=== PATIENT | female | born 1950 | race Caucasian/White ===

== ENCOUNTER → 2017-01-05 | Outpatient (CLI) | payer BC, MEDICARE ==
--- NOTE | 2017-01-06 08:04 | RAD ---
EXAM DESCRIPTION: XR FOOT 3 OR MORE VIEWS CLINICAL HISTORY: PAIN. FINDINGS/IMPRESSION: Fracture base of the 5th metatarsal epiphysis, transversely oriented. No significant offset of the subchondral cortex. Maximum separation about 2-3 mm. No other fracture of the foot. Mild hallux valgus and osteoarthritis metatarsophalangeal joint great toe Electronically signed by: Kendrick Ramirez MD 01/06/2017 08:02
== END | disposition home or self-care (01) ==
LOC: RAD 08:49
PROVIDERS: ATTEND Orthopaedic Surgery
DX: M79.671 Pain in right foot (principal)

== ENCOUNTER → 2017-01-19 | Outpatient (CLI) | payer BC, MEDICARE ==
--- NOTE | 2017-01-19 09:41 | RAD ---
EXAM DESCRIPTION: Foot,Right 3 Views CLINICAL HISTORY: 66 yearsFemale, CLOSED FX OF TARSAL AND METATARSAL BONES COMPARISON: January 05, 2017 IMPRESSION: The transversely oriented fracture through the tuberosity of the fifth metatarsal has demonstrated no interval callus formation. No increased healing when compared to prior. All additional findings are unchanged. Electronically signed by: Conor Fagan MD 01/19/2017 9:39 AM [employer]
== END | disposition home or self-care (01) ==
LOC: RAD 08:57
PROVIDERS: ATTEND Orthopaedic Surgery
DX: S92.201D Fracture of unspecified tarsal bone(s) of right foot, subsequent encounter for fracture with routine healing (principal)

== ENCOUNTER → 2017-02-09 | Outpatient (CLI) | payer BC, MEDICARE ==
--- NOTE | 2017-02-09 15:21 | RAD ---
EXAM DESCRIPTION: Foot,Right 3 Views CLINICAL HISTORY: 66 years Female, CLOSED FX OF TARSAL AND METATARSAL BONES COMPARISON: January 19, 2017 FINDINGS: Again seen is a nondisplaced, nonunited transversely oriented fracture involving the base of the fifth metatarsal, unchanged from the patient's previous exam. No new fracture or malalignment is identified. The joint spaces are well-maintained. There is no radiopaque foreign body or soft tissue gas. IMPRESSION: Nondisplaced, nonunited right fifth metatarsal base fracture, unchanged from January 19, 2017. No significant interval callus formation and no new abnormality. Electronically signed by: Elgin Cain MD 02/09/2017 3:20 PM CDT
== END | disposition home or self-care (01) ==
LOC: RAD 08:08
PROVIDERS: ATTEND Orthopaedic Surgery
DX: S92.201D Fracture of unspecified tarsal bone(s) of right foot, subsequent encounter for fracture with routine healing (principal)

== ENCOUNTER → 2017-03-02 | Outpatient (CLI) | payer BC, MEDICARE ==
--- NOTE | 2017-03-03 07:48 | RAD ---
EXAM DESCRIPTION: Foot,Right 3 Views CLINICAL HISTORY: 66 years,Female,CLOSED FX OF TARSAL AND METATARSAL COMPARISON: February 09, 2017 FINDINGS: The right foot demonstrates oblique fracture to the base of the fifth metatarsal which demonstrates a mild increased healing and blurring of the fracture line since prior study. It is displaced about 2 mm but no incongruency of the articular surface Soft tissues are unremarkable. IMPRESSION: Healing transverse fracture to the base of the right fifth metatarsal tarsal [] Electronically signed by: Hubert Duarte MD 03/03/2017 7:47 AM CDT
== END ==
LOC: RAD 07:57
PROVIDERS: ATTEND Orthopaedic Surgery
DX: S92.201D Fracture of unspecified tarsal bone(s) of right foot, subsequent encounter for fracture with routine healing (principal)

== ENCOUNTER → 2017-04-26 | Outpatient (CLI) | payer BC | END | disposition home or self-care (01) | LOC: GMAB 10:54 | PROVIDERS: ATTEND Family Medicine | DX: Z00.01 Encounter for general adult medical examination with abnormal findings (principal) ==

== ENCOUNTER → 2017-05-12 | Outpatient (CLI) | payer BC | END | disposition home or self-care (01) | LOC: GMAB 12:30 | PROVIDERS: ATTEND Family Medicine | DX: N30.00 Acute cystitis without hematuria (principal) ==

== ENCOUNTER → 2017-05-12 | Outpatient (CLI) | payer BC | END | disposition home or self-care (01) | LOC: GMAB 13:39 | PROVIDERS: ATTEND Family Medicine | DX: N30.00 Acute cystitis without hematuria (principal) ==

== ENCOUNTER 2017-05-17 16:53 | Inpatient (IN) | payer BC ==
[2017-05-17] MEDS ORDERED: SODIUM CHLORIDE 0.9% 1000ML 1,000 ML IVS ONE (17:30)
--- NOTE | 2017-05-17 18:47 | CT ---
PROCEDURE: Abdomen/Pelvis w/Contrast HISTORY: recent uti, pesistent symtoms after clearance Indication: Same as above Comparison: CT of the abdomen and pelvis done on 08/05/2011 . Technique: CT of the abdomen and pelvis was done with intravenous contrast. Images were obtained from the lung base to the level of the pubic symphysis in axial plane, followed by orthogonal sagittal and coronal reconstruction. Oral contrast was not given for the study. The patient was injected with contrast intravenously, without any documented immediate adverse reactions. This exam was performed according to our departmental dose-optimization program, which includes automated exposure control, adjustment of the mA and/or KV according to the patient's size and/or use of iterative reconstruction technique. FINDINGS: Images through the lung bases do not show any focal infiltrates or pleural effusions. Note is made of bilateral breast prosthesis The liver, gallbladder, pancreas, spleen and the bilateral adrenal glands appear unremarkable. The common duct is top normal for patient's age and stable in size since 08/05/2011. The common duct distally measures 9 mm across. There is no intrahepatic biliary dilatation There is a well-demarcated small area of nonenhancement in the lower pole of the left kidney and may be as a result of underlying pyelonephritis. The bilateral kidneys otherwise concentrate and excrete contrast normally. Multiple tiny subcentimeter benign bilateral cortical renal cysts are seen The urinary bladder is unremarkable . The bilateral ureters and the bilateral periureteral soft tissues and fat planes are unremarkable. The small bowel appears unremarkable, without any evidence of small bowel obstruction or bowel wall thickening. There is no CT evidence of acute appendicitis, pericecal inflammatory change or ileocecal mesenteric adenitis. The ileocecal junction appears unremarkable. There is no CT evidence of acute colonic diverticulitis or colitis or large bowel obstruction. There is significant constipation The splenic and portal veins are of normal caliber, without any filling defects. There is no pathological lymphadenopathy in the retroperitoneum or in the pelvic region. There is no evidence of free fluid or free air in the abdomen or the pelvic region. There is no clinically significant abdominal aortic aneurysm. There is no clinically significant inguinal or ventral hernia. The visualized lumbar spine shows underlying mild degenerative change . The paravertebral soft tissues are unremarkable. The remainder of the pelvic structures are unremarkable. IMPRESSION: There is a well-demarcated small area of nonenhancement in the lower pole of the left kidney and may be as a result of underlying pyelonephritis. The bilateral kidneys otherwise concentrate and excrete contrast normally. There is presence of significant constipation. Location of Interpretation: Teleradiology Electronically signed by: Arsen Miller MD 05/17/2017 6:47 PM CDT Workstation: [id number]
[2017-05-17] MEDS ORDERED: cefTRIAXone SODIUM 1 GM in SODIUM CHL 0.9% 50ML MIN-BAG+ 50 ML IVPB ONE (19:04)
[2017-05-17] MEDS ORDERED: FLUCONAZOLE 100 MG TAB PO ONE (19:11)
--- NOTE | 2017-05-17 19:11 | ED.PDOC ---
History of Present Illness - General Chief Complaint: Problem Stated Complaint: chills,UTI for 3 weeks Time Seen by Provider: 05/17/17 17:29 Source: patient Exam Limitations: no limitations - History of Present Illness Initial Comments: the patient is a 67-year-old female presenting to the emergency room secondary to persistent symptoms of bladder spasms along with generalized body aches and fatigue. She has had some chills as well. The patient has apparently had a urinary tract infection for the last 3 weeks. She failed to respond to the initial antibiotic and antibiotic was changed approximately 5 days ago to ciprofloxacin. Urine culture has grown out Escherichia coli sensitive to the ciprofloxacin. The patient was sent over here for primary care doctor's office primarily for further evaluation as her urine was clearing up but her symptoms were remaining. The patient does have some long-standing mild hyponatremia that is a little worse today as well. Concern was for significant interstitial nephritis versus pyelonephritis. Severity: moderate Improving Factors: nothing Worsening Factors: nothing Associated Symptoms: loss of appetite, malaise, weakness Allergies/Adverse Reactions: Allergies Penicillins Adverse Reaction (Verified 07/31/15 17:05) adhesives Adverse Reaction (Uncoded 07/31/15 17:05) Home Medications: Ambulatory Orders Metoclopramide HCl [Reglan] 10 mg PO DAILY 07/31/15 Pentosan Polysulfate Sodium [Elmiron] 100 mg PO BID 07/31/15 Review of Systems - Review of Systems Constitutional: States: chills, malaise, weakness EENTM: States: no symptoms reported Respiratory: States: no symptoms reported Cardiology: States: no symptoms reported Gastrointestinal/Abdominal: States: abdominal pain, nausea Musculoskeletal: States: back pain - ild, other - body aches Skin: States: no symptoms reported Neurological: States: anxiety, weakness Endocrine: States: no symptoms reported, intolerance to cold All other Systems: No Change from Baseline Past Medical History (General) - Patient Medical History Hx Seizures: No Hx Stroke: Yes - 2011-june. Hx Dementia: No Hx Asthma: Yes Hx of COPD: No Hx Cardiac Disorders: Yes Hx Congestive Heart Failure: No Hx Pacemaker: No Hx Hypertension: Yes Hx Thyroid Disease: No Hx Diabetes: No Hx Renal Disease: No Hx Cancer: No Hx of HIV: No Hx MRSA: No Surgical History: appendectomy, tonsillectomy, Hysterectomy - Vaccination History Hx Influenza Vaccination: Yes Hx Pneumococcal Vaccination: Yes - Social History Hx Tobacco Use: Yes Hx Chewing Tobacco Use: No Family Medical History - Family History Mother Family History: No Known Physical Exam - Physical Exam General Appearance: Alert, No apparent distress Eye Exam: bilateral normal Ears, Nose, Throat: hearing grossly normal, normal ENT inspection, normal pharynx Neck: non-tender, full range of motion, supple Respiratory: chest non-tender, lungs clear, normal breath sounds, no respiratory distress, no accessory muscle use Cardiovascular/Chest: normal peripheral pulses, regular rate, rhythm, no edema Peripheral Pulses: radial,right: 2+, radial,left: 2+, dorsalis pedis,right: 2+, dorsalis pedis,left: 2+ Gastrointestinal/Abdominal: non tender, soft Rectal Exam: deferred Back Exam: CVA tenderness (R) - ild, CVA tenderness (L) - mild Extremity: normal range of motion, non-tender, normal inspection, no pedal edema , normal capillary refill Neurologic: purse maker II-XII nml as tested, alert, normal mood/affect, oriented x 3 Skin Exam: normal color Comments: Vital Signs - 24 hr 05/17/17 05/17/17 17:10 18:45 Temperature 97.3 F L Pulse Rate [ 96 H 88 Left Brachial] Respiratory 20 20 Rate Blood Pressure 156/91 146/71 [Left Arm] O2 Sat by Pulse 95 96 Oximetry Progress - Progress Progress: 05/17/17 19:14 the patient is a 67-year-old female presenting with persistent symptoms of her UTI in spite of clearing of the urine. CT scan indicates a persistent pyelonephritis. The patient additionally has a mildly worsening hyponatremia. The patient will be brought in for treatment of both of these. IV Rocephin is being given. Continue the oral ciprofloxacin. Monitor closely. - Results/Orders Results/Orders: outpatient urinalysis today was clear. BUN was 4. Creatinine was 0.7. Sodium was 127. Potassium was 3.5. Chloride was 87. Bicarbonate was 27. Calcium was 9.2. Glucose is 110. I do not have a copy of the CBC done today but apparently the white blood cell count was within normal limits according to Dr. Burgess. CT scan of abdomen and pelvis shows what is consistent with a left lower pole polynephritis. Departure - Departure Clinical Impression: Pyelonephritis, Hyponatremia Disposition: Admit Patient Referrals: Denadre Burgess MD [Primary Care Provider] - 1-2 Weeks Home Medications: Ambulatory Orders Metoclopramide HCl [Reglan] 10 mg PO DAILY 07/31/15 Pentosan Polysulfate Sodium [Elmiron] 100 mg PO BID 07/31/15 Decision To Admit - Decistion To Admit Decision to Admit Reason: Medical Nature Decision to Admit Date: 05/17/17 Decision to Admit Time: 19:15
[2017-05-17] MEDS ORDERED: SODIUM CHL 0.9% 50ML MIN-BAG+ 50 ML IVPB ONE (19:55)
[2017-05-17] MEDS ORDERED: cefTRIAXone SODIUM 1 GM VIAL ONE (19:55)
--- NOTE | 2017-05-17 20:09 | HP ---
HISTORY OF PRESENT ILLNESS: This 67 year-old white female was admitted to the hospital via the Emergency Room after being referred to the Emergency Room from Dr. Burgess's office. She has been self treating herself for bladder infection symptoms with dysuria and increased frequency for the last 3 weeks. She has been taking Bactrim twice a day. She persisted in her symptoms until seen last Monday in the clinic at which time a urinalysis was obtained and culture which revealed eventually an Escherichia coli resistant to the Bactrim. She was started on Cipro twice a day and has been on Cipro for the last 5 days. Her symptoms have persisted. She has had a history of hematuria for a number of years. She has had some fever and chills with temperatures up to 102 degrees in the past and up to 99.8 degrees while being on the Cipro more recently. She has had no vomiting but she has had mild nausea and decreased eating. Because of her persistent symptoms and having failed an outpatient treatment course on 2 separate occasions, she was referred for a CT scan of the abdomen and pelvis. It revealed evidence of a left sided pyelonephritis and was placed in the Emergency Room for initiation of therapy and eventual admitted to the hospital for continued treatment because of the resistance thereof. In the Emergency Room, she was also found to have a very low sodium with sodium 127. No osmolality was obtained, but the patient does admit to drinking 6 or more of the little bottles of drinking water per day as well as other fluids. She was started on Rocephin in the Emergency Room and is transferred to the hospital bed for continued parenteral treatment having failed outpatient therapy. PAST MEDICAL HISTORY: 1. Asthma. 2. Hypertension. 3. Recurring urinary tract infections. 4. Hematuria. PAST SURGICAL HISTORY: 1. Hysterectomy. 2. Tonsillectomy and adenoidectomy. 3. Appendectomy. 4. Tummy tuck. 5. Colonoscopy. CURRENT MEDICATIONS: Please refer to a list of verified home medicines that the nurses have provided. ALLERGIES: POSSIBLY TO PENICILLIN BUT SHE THINKS THAT IS HER SISTER. FAMILY HISTORY: Positive for colon cancer in her father and arthritis on the mother's side. 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 She stopped tobacco use over 38 years ago after only a couple of cigarettes tried. REVIEW OF SYSTEMS: No significant weight loss but she has had fever and chills. HEENT: No significant vision or hearing deficits. LUNGS: No significant shortness of breath, cough or sputum or hemoptysis. CARDIOVASCULAR: No chest pains or palpitations. ABDOMEN: Nausea with some decreased appetite recently. GENITOURINARY: Recurring urinary symptoms of dysuria and frequency, and with chronic hematuria noted having been seen by at least a couple of urologists in the past. Potential diagnoses of interstitial cystitis without biopsy has been presented to the patient. NEUROLOGIC: No focal neurological deficits, but she is generally quite weak now compared to her usual self. PHYSICAL EXAMINATION: VITAL SIGNS: Temperature 98.5, pulse 75, blood pressure 160/93, room air saturation 99. Weight 69.7 kilos. GENERAL: The patient is awake, alert and oriented. She is very chilled in the cool room in the Emergency Room requiring several blankets to help cover. HEENT: Unremarkable. NECK: Supple. CHEST: Lungs are clear. CARDIOVASCULAR: Heart tones regular. ABDOMEN: Soft, yet somewhat tender around the suprapubic region but better after she has gone to the restroom. EXTREMITIES: Well formed with good muscle tone. Good range of motion. NEUROLOGIC: No focal neurological deficits. The patient is awake, alert and oriented, and communicative. LABORATORY STUDIES: Glucose 110, BUN 40, creatinine 0.7. Sodium low at 127, potassium borderline at 3.5. CO2 is normal at 27, calcium 9.2. Urinalysis shows 1+ blood with 3 to 5 red blood cells, otherwise clean. Other lab pending. CT scan of the abdomen and pelvis does reveal an area of diminished contrast enhancement on the left lower pole of the kidney possibly suggesting an underlying pyelonephritis, otherwise within normal limits. ASSESSMENT: 1. Acute left sided pyelonephritis having failed outpatient therapy with 2 courses of therapy, including Bactrim and Cipro with urine showing some improvement in the urinalysis, yet the patient still with symptoms of fever, chills, dysuria and increased frequency of urination. 2. Hyponatremia awaiting osmolality studies, but apparently dilutional from polydipsia, with continued evaluation and rule out, if indicated, the presence of inappropriate ADH. 3. Fecal impaction, significant requiring ongoing intervention. 4. The possibility of symptomatic interstitial cystitis. 5. History of chronic hematuria. PLAN: The patient's symptomatic hyponatremia will be treated with fluid restrictions, loop diuresis and saline infusion slowly provided. No hypertonic saline at this time until reevaluated. Will continue with Rocephin for the antibiotic of choice. Suggest further urological evaluation and consider bladder biopsy if the diagnosis of interstitial cystitis is a possibility. Try Milk of Magnesia and suppositories, and enemas if needed for the fecal impaction. Close followup suggested and return followup with Dr. Burgess when condition is stabilized. #[id number]
[2017-05-17] MEDS ORDERED: SODIUM CHLORIDE 0.9% (FLUSH) 10 ML SYG IV PRN (20:38)
[2017-05-17] MEDS ORDERED: BISACODYL SUPPOSITORY 10 MG PR PRN (20:44)
[2017-05-17] MEDS ORDERED: IV SET AND CAP CHANGE INJ INJ SCH (21:00)
[2017-05-17] MEDS ORDERED: SODIUM PHOS/BIPHOS ENEMA ADULT 133 ML BTTL PR PRN (21:01)
[2017-05-17] MEDS ORDERED: MINERAL OIL 133 ML BTTL PR PRN (21:02)
[2017-05-17] MEDS: FUROSEMIDE INJ 20 MG/2 ML VIAL IV SCH (21:09)
[2017-05-17] MEDS: KCL 20 MEQ/NS 1,000 ML IVS PRN (21:16)
[2017-05-17] MEDS: POLYETHYLENE GLYCOL 3350 17 GM PCKT PO SCH (21:20)
[2017-05-17] MEDS: MAGNESIUM HYDROXIDE 30 ML UD PO SCH (21:20)
--- NOTE | 2017-05-18 01:38 | PCM.CORE ---
Physician DVT/VTE - Nurse DVT Assessment & Total Each Risk Factor Represents 3 Points: Medical PT with Hx of IL, CHF, Severe infection/sepsis Each Risk Factor Represents 2 Points: Age 60-74 DVT Assessment Score: 5 - 5 or more Very High Risk Treatments: Sequential Compression Device Pharmacological: Enoxaparin 40mg SQ Daily
[2017-05-18] MEDS ORDERED: ENOXAPARIN SODIUM 40 MG/0.4 ML SYG SUBCU SCH (02:00)
[2017-05-18] MEDS ORDERED: SODIUM CHL 0.9% 50ML MIN-BAG+ 50 ML IVPB ONE ×2 (05:02→16:55)
[2017-05-18] MEDS ORDERED: cefTRIAXone SODIUM 1 GM VIAL ONE ×2 (05:02→16:56)
[2017-05-18] MEDS: OMEPRAZOLE CAP 20 MG CAP PO SCH (06:11)
[2017-05-18] MEDS: cefTRIAXone SODIUM 1 GM in SODIUM CHL 0.9% 50ML MIN-BAG+ 50 ML IVPB SCH ×2 (06:11→18:41)
[2017-05-18] MEDS: KCL 20 MEQ/NS 1,000 ML IVS PRN ×2 (08:37→19:41)
[2017-05-18] MEDS: POLYETHYLENE GLYCOL 3350 17 GM PCKT PO SCH (09:11)
[2017-05-18] MEDS: FUROSEMIDE INJ 20 MG/2 ML VIAL IV SCH ×2 (09:11→17:01)
[2017-05-18] MEDS: MAGNESIUM HYDROXIDE 30 ML UD PO SCH ×2 (09:11→20:08)
[2017-05-18] MEDS: BIFIDOBACTERIUM INFANTIS 4 MG CAP PO SCH (11:00)
[2017-05-18] MEDS ORDERED: METOCLOPRAMIDE HCL 5 MG TAB PO PRN (18:12)
[2017-05-18] MEDS ORDERED: HYDROcodone 10MG/APAP 325MG 1 EA TAB PO PRN (18:12)
[2017-05-18] MEDS ORDERED: ALPRAZolam 0.5 MG TAB PO PRN (18:12)
[2017-05-18] MEDS: ASPIRIN TABLET 325 MG TAB PO SCH (18:46)
[2017-05-18] MEDS: MILNACIPRAN HCL 150 MG PO SCH (18:53)
[2017-05-18] MEDS: PLECANATIDE 3 MG PO SCH (18:54)
[2017-05-18] MEDS: PHENAZOPYRIDINE HCL 200 MG TAB PO SCH (20:08)
[2017-05-18] MEDS: traZODone HCL 100 MG TAB PO SCH (21:39)
[2017-05-18] MEDS: ZOLPIDEM TARTRATE 10 MG TAB PO SCH (21:39)
[2017-05-18] MEDS: NON-FORMULARY MEDICATION 1 EA MIS (Levocetirizine Dihydrochloride [Xyzal] 5 MG) PO SCH (21:40)
[2017-05-19] MEDS ORDERED: SODIUM CHL 0.9% 50ML MIN-BAG+ 50 ML IVPB ONE ×2 (05:18→17:59)
[2017-05-19] MEDS ORDERED: cefTRIAXone SODIUM 1 GM VIAL ONE ×2 (05:19→18:00)
[2017-05-19] MEDS: OMEPRAZOLE CAP 20 MG CAP PO SCH (06:02)
[2017-05-19] MEDS: cefTRIAXone SODIUM 1 GM in SODIUM CHL 0.9% 50ML MIN-BAG+ 50 ML IVPB SCH ×2 (06:02→18:18)
[2017-05-19] MEDS: KCL 20 MEQ/NS 1,000 ML IVS PRN (06:07)
--- NOTE | 2017-05-19 08:14 | PN ---
SUPERVISING PHYSICIAN: Kendrick Shelton MD DATE: 05/18/17 SUBJECTIVE: The patient is resting in bed. She says she feels somewhat better than prior to admission. She has been afebrile. She has had no more nausea. She actually was able to have a bowel movement since admission. She has had no nausea or vomiting. OBJECTIVE: VITAL SIGNS: T-max 98.5. Pulse 72. Blood pressure 112/68. Respirations 18. Saturation 97% on room air. I&Os show negative balance of 310 with 640 in, 950 out. She has had one bowel movement. Weight 69.6 kg. CHEST: Lungs clear to auscultation bilaterally. No rhonchi or rales noted. HEART: Regular rate and rhythm without appreciable murmurs, gallops, or rubs. ABDOMEN: Soft, nontender. Positive bowel sounds. She did have a bowel movement today. EXTREMITIES: No cyanosis, clubbing or edema. NEUROLOGIC: Alert and oriented times three. LABORATORY: White count 3.6, hemoglobin 11.7, hematocrit 33.7, platelet count 345,000. Differential without left shift. chemistries show low sodium 134, potassium normal at 4.0, carbon dioxide 24, BUN 6, creatinine 0.58, glucose 89. Serum osmolality 265, lactic acid 0.6. Liver functions within normal limits. MICROBIOLOGY: Submitted through the clinic prior to admission showed a urine culture completed on 05/12/17 with Escherichia coli final report with sensitivity being resistant to ampicillin, Bactrim, piperacillin, and Augmentin. Sensitive to first, second, and third generation cephalosporins as well as fluoroquinolones. Repeat urine culture was cancelled prior to admission. Blood cultures from 05/12/17 remain negative after 5 days. ASSESSMENT: 1. Left sided pyelonephritis having failed outpatient treatment plan with 2 previous courses of antibiotics including Bactrim, Floxin and Cipro with final culture results from clinic showing Escherichia coli with the patient showing improvement in symptoms and has remained afebrile since starting on IV antibiotics including Rocephin. 2. Hyponatremia with low serum osmolality, likely secondary to excessive intake from self-treatment of underlying urinary tract infection. 3. Fecal impaction, showing improvement with bowel movement noted today. 4. History of interstitial cystitis having previously seen urology in [place] and being followed through Dr. Burgess's office. 5. History of chronic hematuria secondary to ongoing chronic interstitial cystitis. PLAN: The patient will continue on parenteral antibiotic to include Rocephin. She will continue on IV fluids and encourage oral intake, at the same time watching total fluid restriction. The patient is showing some improvement, but given her ongoing failure of treatment of previous infections evidenced by the pyelonephritis on CT scan, the patient will benefit from additional 48 hours at least of antibiotic coverage to ensure good treatment prior to transition to p.o. medication for treatment in outpatient setting. She will continue with close monitoring until discharge and once discharged, will continued followup with Dr. Burgess in outpatient setting. #[id number] [facility] NETWORKCrist[facility]
[2017-05-19] MEDS ORDERED: ATORVASTATIN 10 MG TAB PO SCH (09:00)
[2017-05-19] MEDS ORDERED: ENOXAPARIN SODIUM 40 MG/0.4 ML SYG SUBCU SCH (09:00)
[2017-05-19] MEDS: ASPIRIN TABLET 325 MG TAB PO SCH (09:30)
[2017-05-19] MEDS: PHENAZOPYRIDINE HCL 200 MG TAB PO SCH ×3 (09:54→20:58)
[2017-05-19] MEDS: BIFIDOBACTERIUM INFANTIS 4 MG CAP PO SCH (09:54)
[2017-05-19] MEDS: MILNACIPRAN HCL 50 MG PO SCH ×3 (09:54→20:58)
[2017-05-19] MEDS: POLYETHYLENE GLYCOL 3350 17 GM PCKT PO SCH (10:00)
[2017-05-19] MEDS: MAGNESIUM HYDROXIDE 30 ML UD PO SCH ×2 (10:00→20:59)
[2017-05-19] MEDS: MILNACIPRAN HCL 150 MG PO SCH (10:24)
[2017-05-19] MEDS: PLECANATIDE 3 MG PO SCH (10:24)
[2017-05-19] MEDS: SODIUM CHLORIDE 0.9% (FLUSH) 10 ML SYG IV SCH ×2 (11:13→20:59)
[2017-05-19] MEDS: NON-FORMULARY MEDICATION 1 EA MIS (Levocetirizine Dihydrochloride [Xyzal] 5 MG) PO SCH (13:55)
[2017-05-19] MEDS ORDERED: METOPROLOL SUCCINATE XL 25 MG TAB PO SCH (14:30)
[2017-05-19] MEDS ORDERED: ASPIRIN TABLET 325 MG TAB ONE (19:56)
--- NOTE | 2017-05-19 20:23 | PN ---
DATE: 05/19/17 SUPERVISING PHYSICIAN: Hector Brooks M.D. SUBJECTIVE: The patient has been having some nausea today, but she has been afebrile. She denies any diarrhea or abdominal pains. She says her back pain has improved. OBJECTIVE: VITAL SIGNS: T max 98.5, pulse 81, blood pressure 127/75, respirations 18, satting 98% on room air. CHEST: Clear to auscultation bilaterally. HEART: Regular rate and rhythm. ABDOMEN: Soft, non-tender. Positive bowel sounds. EXTREMITIES: No clubbing, cyanosis or edema. NEUROLOGIC : She is alert and oriented times three. LABORATORY: Chemistries now show normal sodium at 137, potassium 4.2, BUN 6, creatinine 0.51, glucose 90, calcium 8.8. ASSESSMENT: 1. Left sided pyelonephritis having failed to respond to outpatient treatment plan with 2 previous courses of antibiotics that included Bactrim and ciprofloxacin with final culture results from the clinic showing Escherichia coli with the patient showing improvement in symptoms, although she has been having some nausea but has remained afebrile remaining on IV antibiotics to include Rocephin with the culture and sensitivity report showing a pansensitive species. 2. Hyponatremia with low serum osmolality on admission likely secondary to excessive oral intake of free water secondary to underlying urinary tract infection showing improvement after IV therapy. 3. Fecal impaction, resolved with the patient having multiple bowel movements since admission. 4. History of interstitial cystitis having previously been seen by Urology in [place] and being followed through Dr. Burgess's office. 5. History of chronic hematuria secondary to ongoing chronic interstitial cystitis. PLAN: The patient will benefit from an additional 12 to 24 hours of antibiotics. She continues to have some mild symptoms that include nausea today , but has remained afebrile. Hope to discharge tomorrow morning as long as the patient is showing some clinical improvement. Once discharged, she will need close clinical followup and continued IV antibiotic therapy for additional days to include at least 10 days of antibiotic therapy to be followed-up with Dr. Burgess after treatment. #[id number] [facility]
[2017-05-19] MEDS: traZODone HCL 100 MG TAB PO SCH (20:58)
[2017-05-19] MEDS: ZOLPIDEM TARTRATE 10 MG TAB PO SCH (20:59)
[2017-05-19] MEDS ORDERED: ASPIRIN TABLET 325 MG TAB PO SCH (21:00)
[2017-05-20] MEDS ORDERED: SODIUM CHL 0.9% 50ML MIN-BAG+ 50 ML IVPB ONE (03:19)
[2017-05-20] MEDS ORDERED: cefTRIAXone SODIUM 1 GM VIAL ONE (03:20)
[2017-05-20] MEDS: OMEPRAZOLE CAP 20 MG CAP PO SCH (06:13)
[2017-05-20] MEDS: cefTRIAXone SODIUM 1 GM in SODIUM CHL 0.9% 50ML MIN-BAG+ 50 ML IVPB SCH (06:13)
[2017-05-20 06:20] VITALS: BP 104/66; TEMP 96.8; O2SAT 94
[2017-05-20] MEDS ORDERED: NON-FORMULARY MEDICATION 1 EA MIS (Levocetirizine Dihydrochloride [Xyzal] 5 MG) PO SCH (14:00)
[2017-05-20] MEDS ORDERED: METOPROLOL SUCCINATE XL 25 MG TAB PO SCH (14:00)
[2017-05-20] MEDS ORDERED: ATORVASTATIN 10 MG TAB PO SCH (14:00)
--- NOTE | 2017-05-21 20:23 | DS ---
SUPERVISING PHYSICIAN: Hector Brooks M.D. DISCHARGE DIAGNOSIS: 1. Left sided pyelonephritis having failed to respond to outpatient treatment plan with 2 previous courses of antibiotics with final culture results on admission showing Escherichia coli with the patient being on IV antibiotics to include Rocephin with culture showing pansensitive species with the patient showing good clinical improvement prior to discharge. 2. Hyponatremia with low serum osmolality on admission likely secondary to excessive oral intake of free water secondary to underlying urinary tract infection showing improvement after IV therapy. 3. Fecal impaction having resolved with the patient having multiple bowel movements since admission. 4. History of interstitial cystitis having previously been seen by Urology in [place] and being followed through with Dr. Burgess's office. 5. History of chronic hematuria secondary to ongoing chronic interstitial cystitis and exacerbation by underlying urinary tract infection and pyelonephritis. HISTORY OF PRESENT ILLNESS: Ms. Ghosh is a 67 year-old female patient that was admitted to the hospital via the Emergency Room after being referred to the Emergency Room from Dr. Burgess's office. She has been self treating herself for bladder infection symptoms with dysuria and increased frequency for the last 3 weeks prior to admission. She had been taking Bactrim twice a day. She persisted in her symptoms until the Monday prior to admission in the clinic at which time a urinalysis was obtained and culture revealed eventually an Escherichia coli resistant to the Bactrim. She was then started on Cipro twice a day and has been on Cipro for 5 days prior to this admission. Her symptoms have persisted. She also has a history of hematuria for many years secondary to chronic cystitis. She has had some fever and chills with temperatures up to 102 degrees in the past and up to 99.8 degrees while being on the Cipro recently. She had had no vomiting but she has had mild nausea and decreased eating. Because of her persistent symptoms and having failed an outpatient treatment course on 2 separate occasions, she was referred for a CT scan of the abdomen and pelvis. This revealed evidence of a left sided pyelonephritis and was placed in the Emergency Room for initiation of therapy and eventually admitted to the hospital for continued treatment due to the resistant pattern thereof and having failed treatment as previously noted. In the Emergency Room, she was found to have a very low sodium of 127. No osmolality was obtained, but the patient did admit to drinking 6 or more glasses of water a day, Pedialyte or other fluids in attempts to treat herself for the urinary tract infection. She was started on Rocephin in the Emergency Room and transferred to the hospital floor for continued treatment of parenteral antibiotics having failed outpatient therapy. She was admitted in stable condition. LABORATORY: White count on admission was 3.6, at discharge was 4.4, hemoglobin and hematocrit were stable at 11.3 and 33.4 at discharge with platelet count of 362,000. Differential never did show a left shift. Chemistries showed sodium 134 with potassium 4.0, anion gap of 14 with BUN 6, creatinine 0.58 after IV therapy. At discharge, her electrolytes had normalized. Her laboratory studies that were performed in the clinic prior to her admission again showed low sodium of 127. MICROBIOLOGY: Urine culture that was submitted on 05/12 showed Escherichia coli on final culture results showing good sensitivity pattern with only to be resistant to Ampicillin, Bactrim, Piperacillin and Augmentin. Again, the patient had been on Bactrim prior to admission to the hospital as well as Cipro , but sensitivity pattern showed it was sensitive to Cipro. She also had 2 sets of blood cultures that were completed in the clinic and those showed to remain negative after 5 days. RADIOLOGY: In the Emergency Department on admission, she had an abdominal CT with contrast and per radiology interpretation there was a well demarcated small area of non-enhancement in the lower pole of the left kidney, may be result of underlying pyelonephritis. The bilateral kidneys are otherwise concentric and excrete contrast normally. There was the presence of significant constipation noted. HOSPITAL COURSE: Ms. Ghosh was admitted as noted in the History of Present Illness for underlying left sided pyelonephritis as well as severe constipation and hyponatremia. She was treated with IV fluids. Her sodium normalized well. She was started on Rocephin which did clinically show good improvement after initiation of IV therapy, although she did show some slow clinical improvement with some nausea throughout the hospitalization until 24 hours prior to discharge. She did remain afebrile and on the morning of discharge was felt clinically stable enough to be discharged to continue with outpatient treatment plan. The patient in regards to her constipation received treatment and had multiple bowel movements prior to discharge, and was feeling much better in regards to the constipation. PLAN: Ms. Ghosh was discharged on 05/20/17 to have close clinical followup with Dr. Burgess in 1 to 2 weeks. She was instructed to call Dr. Burgess's office on Monday after discharge to schedule an appointment. She is to resume her home medications as instructed and start new prescriptions as directed. She will need close followup, a repeat urinalysis and recheck of her BMP to assure sodium is staying within normal limits. She was encouraged to take p.o. fluids but in moderation to prevent over toxication with water and to return to the hospital should she not have any improvement of her symptoms. At discharge, new prescriptions included: 1. Align 4 mg daily. 2. Suprax 400 mg twice daily, #20. 3. Pyridium 200 mg 3 times a day, #6. 4. MiraLAX 17 grams daily. Diet at discharge is high fiber, regular diet as tolerated. Activity is to increase as tolerated. Condition on discharge was stable and improved. The patient was encouraged to take MiraLAX daily and utilize Milk of Magnesia as needed to assist with bowel movements. #[id number] MTDD
== END 2017-05-20 09:35 | disposition home or self-care (01) | DRG 690 ==
LOC: ER 16:53 → MS 20:08
PROVIDERS: ADMIT Emergency Medicine; ATTEND Nurse Practitioner Family
PROC: BW21YZZ Computerized Tomography (CT Scan) of Abdomen and Pelvis using Other Contrast (ICD-10-PCS; principal; 2017-05-17)
DX: N10 Acute pyelonephritis (principal); E87.1 Hypo-osmolality and hyponatremia; B96.20 Unspecified Escherichia coli [E. coli] as the cause of diseases classified elsewhere; K56.41 Fecal impaction; N30.11 Interstitial cystitis (chronic) with hematuria; K59.00 Constipation, unspecified; J45.909 Unspecified asthma, uncomplicated; I10 Essential (primary) hypertension; Z86.73 Personal history of transient ischemic attack (TIA), and cerebral infarction without residual deficits

== ENCOUNTER → 2017-06-07 | Outpatient (CLI) | payer BC | END | disposition home or self-care (01) | LOC: LAB 15:34 | PROVIDERS: ATTEND Urology | DX: R31.9 Hematuria, unspecified (principal) ==

== ENCOUNTER → 2017-09-05 | Outpatient (CLI) | payer BC | END | disposition home or self-care (01) | LOC: GMAB 14:38 | PROVIDERS: ATTEND Family Medicine | DX: N39.0 Urinary tract infection, site not specified (principal) ==

== ENCOUNTER → 2017-09-18 | Outpatient (CLI) | payer BC | END | disposition home or self-care (01) | LOC: GMAB 14:15 | PROVIDERS: ATTEND Family Medicine | DX: N30.00 Acute cystitis without hematuria (principal) ==

== ENCOUNTER 2018-03-07 23:36 | Emergency (ER) | payer BC, MEDICARE ==
--- NOTE | 2018-03-08 00:20 | CT ---
EXAM: CT head without contrast. INDICATION: AMS. TECHNIQUE: Contiguous axial CT images of the brain. Intravenous contrast: Absent. DLP 859 mGy-cm. This exam was performed according to our departmental dose-optimization program, which includes automated exposure control, adjustment of the mA and/or kV according to patient size and/or use of iterative reconstruction technique. COMPARISON: 07/31/2015. FINDINGS: Subcutaneous: Unremarkable. No acute intracranial hemorrhage. No midline shift. No mass effect. Ventricles: No hydrocephalus. Amanda-white differentiation preserved. Paranasal sinuses/mastoid air cells: Visualized portions are aerated. Bones/orbits: Visualized portions are unremarkable. IMPRESSION: 1. No CT evidence of acute intracranial hemorrhage. Electronically signed by: Steve Mon MD 03/08/2018 12:19 AM CDT Workstation: [id number]
--- NOTE | 2018-03-08 00:21 | RAD ---
EXAM: Single view chest. INDICATION: AMS. COMPARISON: Chest x-ray: 07/31/2015. FINDINGS: Cardiac silhouette: Unremarkable. [place]: Unremarkable. Lobar consolidation: None. Pleural effusion: None. Pneumothorax: None. Other: There is mild elevation of the right hemidiaphragm Bones: Unremarkable. Other: None. IMPRESSION: 1. No acute cardiopulmonary process. Electronically signed by: Steve Mon MD 03/08/2018 12:19 AM CDT Workstation: [id number]
[2018-03-08 01:31] VITALS: O2SAT 96
--- NOTE | 2018-03-08 01:35 | ED.PDOC ---
History of Present Illness - General Chief Complaint: Unresponsive Stated Complaint: unresponsive Time Seen by Provider: 03/07/18 23:42 Source: patient Exam Limitations: no limitations - History of Present Illness Initial Comments: the patient is a 67-year-old female presenting to emergency room secondary to lethargy. The patient's apparently thought she was not breathing anddid give her [id number]. The patient had had several glasses of wine tonight and is uncertain how many of her Ambien and trazodone and Xanax she has taken. She did not intentionally take too many. She does not normally drink. She was not trying to hurt herself. But, patient arrived here to the emergency room she was still drowsy but conversive. She is oriented and arousable to voice. Extraocular movements are intact. She is moving all extremities. No evidence of any stroke clinically. No fevers prior. No headache. Timing/Duration: 1 hour Severity: moderate Improving Factors: nothing Worsening Factors: nothing Associated Symptoms: denies symptoms Allergies/Adverse Reactions: Allergies Sulfa Antibiotics Allergy (Verified 03/07/18 23:55) Alcohol Adverse Reaction (Verified 03/08/18 01:33) Penicillins Adverse Reaction (Verified 07/31/15 17:05) adhesives Adverse Reaction (Uncoded 07/31/15 17:05) Home Medications: Ambulatory Orders Metoclopramide HCl [Reglan] 10 mg PO ACHS PRN 07/31/15 ALPRAZolam [Xanax] 0.5 mg PO TID PRN 05/18/17 Aspirin 325 mg PO QD 05/18/17 Atorvastatin Calcium [Lipitor] 10 mg PO DAILY 05/18/17 Flavoxate HCl 1 - 2 tablet PO QID PRN 05/18/17 HYDROcodone 10MG/APAP 325MG [[place] 10/325] 1 ea PO Q4H PRN 05/18/17 Levocetirizine Dihydrochloride [Xyzal] 5 mg PO BEDTIME 05/18/17 Metoprolol Succinate [Toprol Xl] 37.5 mg PO DAILY 05/18/17 Milnacipran HCl [Savella] 50 mg PO TID 05/18/17 Trazodone HCl 100 mg PO BEDTIME 05/18/17 Triamcinolone Acetonide (Nasal [Nasacort Allergy 24Hr] 1 spray INH BID PRN 05/18 Valsartan-Hydrochlorothiazide [Diovan Hct 160-12.5 mg] 1 tablet PO DAILY Zolpidem Tartrate [Ambien] 10 mg PO BEDTIME 05/18/17 Bifidobacterium Infantis [Align] 4 mg PO DAILY 05/20/17 Cefixime [Suprax] 400 mg PO BID #20 cap 05/20/17 Phenazopyridine HCl [Pyridium] 200 mg PO TID #6 tablet 05/20/17 Polyethylene Glycol 3350 [Miralax] 17 gm PO DAILY 05/20/17 Review of Systems - Review of Systems Constitutional: States: malaise EENTM: States: no symptoms reported Respiratory: States: no symptoms reported Cardiology: States: no symptoms reported Gastrointestinal/Abdominal: States: no symptoms reported Genitourinary: States: no symptoms reported Musculoskeletal: States: no symptoms reported Skin: States: no symptoms reported Neurological: States: see HPI Endocrine: States: no symptoms reported All other Systems: No Change from Baseline Past Medical History (General) - Patient Medical History Hx Seizures: No Hx Stroke: Yes - 2011, and TIAs Hx Dementia: No Hx Asthma: Yes Hx of COPD: No Hx Cardiac Disorders: Yes - defibrillator, hx A-fib Hx Congestive Heart Failure: No Hx Pacemaker: No Hx Hypertension: Yes Hx Thyroid Disease: No Hx Diabetes: No Hx Renal Disease: No Hx Cancer: No Hx of HIV: No Hx MRSA: No Surgical History: appendectomy, tonsillectomy, Hysterectomy - Vaccination History Hx Influenza Vaccination: Yes - 2016 Hx Pneumococcal Vaccination: Yes - 2016 - Social History Hx Tobacco Use: Yes Hx Chewing Tobacco Use: No Hx Alcohol Use: Yes Hx Substance Use: No Hx Physical Abuse: No Hx Emotional Abuse: No Family Medical History - Family History Mother Family History: No Known Physical Exam - Physical Exam General Appearance: Lethargic Eye Exam: bilateral normal Ears, Nose, Throat: hearing grossly normal, normal ENT inspection, normal pharynx Neck: full range of motion, supple, normal inspection Respiratory: lungs clear, normal breath sounds, no respiratory distress, no accessory muscle use Cardiovascular/Chest: normal peripheral pulses, regular rate, rhythm, no edema Peripheral Pulses: radial,right: 2+, radial,left: 2+, dorsalis pedis,right: 2+, dorsalis pedis,left: 2+ Gastrointestinal/Abdominal: non tender, soft Rectal Exam: deferred Back Exam: normal inspection, no CVA tenderness, no vertebral tenderness Extremity: normal range of motion, non-tender, normal inspection, no pedal edema , normal capillary refill 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 This was accidental. The patient has received a liter of IV fluids and is essentially mentating normally at this time. The patient likely needs to reduce her evening sedative type medications and reduce alcohol intake with these medications as the combination is obviously dangerous for her. She needs to follow up with her primary care doctor later this week. ER warnings were given for any significant worsening. Telemetry monitoring showed no evidence of any arrhythmia. - Results/Orders Results/Orders: 03/07/18 23:44 Telemetry .CONTINUOUS 03/07/18 23:45 EKG Assessment ONCE EKG STAT Laboratory Results - last 24 hr 03/07/18 03/07/18 03/07/18 23:44 23:50 23:50 WBC 3.5 L RBC 4.24 Hgb 12.6 Hct 37.1 MCV 87.5 MCH 29.7 MCHC 33.9 RDW 13.1 Plt Count 275 MPV 8.3 Absolute Neuts (auto) 1.30 L Absolute Lymphs (auto) 1.60 Absolute Monos (auto) 0.40 Absolute Eos (auto) 0.10 Absolute Basos (auto) 0.00 Neutrophils % 37.6 L Lymphocytes % 46.3 Monocytes % 10.6 H Eosinophils % 4.2 Basophils % 1.3 PT INR PTT (SP) D-Dimer, Quantitative Sodium 135 Potassium 4.0 Chloride 102 Carbon Dioxide 24 Anion Gap 13.0 BUN 6 L Creatinine 0.72 BUN/Creatinine Ratio 8.3 L Random Glucose 93 Serum Osmolality 267.4 L Calcium 8.6 Magnesium 2.1 Total Bilirubin 0.4 AST 20 ALT 17 Alkaline Phosphatase 55 Creatine Kinase 39 CK-MB (CK-2) 0.6 CK-MB (CK-2) % Not Reportable Troponin I < 0.02 B-Natriuretic Peptide 51.7 Serum Total Protein 5.9 L Albumin 3.8 Globulin 2.1 L Albumin/Globulin Ratio 1.8 TSH 1.76 Urine Color Urine Appearance Urine pH Ur Specific [place] Urine Protein Urine Glucose (UA) Urine Ketones Urine Blood Urine Nitrite Urine Bilirubin Urine Urobilinogen Ur Leukocyte Esterase Urine RBC Urine WBC Ur Epithelial Cells Urine Bacteria Urine Opiates Screen Negative Urine Barbiturates Negative Ur Phencyclidine Scrn Negative U Amphetamin/Meth Scrn Negative U Benzodiazepines Scrn Negative U Cocaine Metab Screen Negative U Cannabinoids Screen Negative 03/07/18 03/08/18 23:50 00:40 WBC RBC Hgb Hct MCV MCH MCHC RDW Plt Count MPV Absolute Neuts (auto) Absolute Lymphs (auto) Absolute Monos (auto) Absolute Eos (auto) Absolute Basos (auto) Neutrophils % Lymphocytes % Monocytes % Eosinophils % Basophils % PT 11.0 INR 0.950 PTT (SP) 31.7 D-Dimer, Quantitative < 230 Sodium Potassium Chloride Carbon Dioxide Anion Gap BUN Creatinine BUN/Creatinine Ratio Random Glucose Serum Osmolality Calcium Magnesium Total Bilirubin AST ALT Alkaline Phosphatase Creatine Kinase CK-MB (CK-2) CK-MB (CK-2) % Troponin I B-Natriuretic Peptide Serum Total Protein Albumin Globulin Albumin/Globulin Ratio TSH Urine Color Yellow Urine Appearance Clear Urine pH 5.5 Ur Specific [place] <= 1.005 Urine Protein Negative Urine Glucose (UA) Negative Urine Ketones Negative Urine Blood Negative Urine Nitrite Negative Urine Bilirubin Negative Urine Urobilinogen 0.2 Ur Leukocyte Esterase Negative Urine RBC 0 Urine WBC 0 Ur Epithelial Cells 0 Urine Bacteria Rare Urine Opiates Screen Urine Barbiturates Ur Phencyclidine Scrn U Amphetamin/Meth Scrn U Benzodiazepines Scrn U Cocaine Metab Screen U Cannabinoids Screen chest x-ray is within normal limits. CT scan of the head shows no acute pathology. EKG shows normal sinus rhythm at a rate of 71 bpm. She does have an extended QT interval. No acute ST segment changes otherwise definitively concerning for ischemia. She does have mild T-wave inversions in leads V2 and V3. No chest pain or shortness of breath. - EKG/XRAY/CT CT Ordered: Yes Departure - Departure Clinical Impression: Accidental overdose Qualifiers: Encounter type: initial encounter Qualified Code(s): T50.901A - Poisoning by unspecified drugs, medicaments and biological substances, accidental ( unintentional), initial encounter Disposition: Discharge to Home or Self Care Condition: Fair Departure Forms: ED Discharge - Pt. Copy, Patient Portal Self Enrollment Instructions: DI for Drug Overdose in Adults Diet: regular diet Activity: increase activity as tolerated Referrals: Deandre Burgess MD [Primary Care Provider] - 1-2 Days Home Medications: Ambulatory Orders Metoclopramide HCl [Reglan] 10 mg PO ACHS PRN 07/31/15 ALPRAZolam [Xanax] 0.5 mg PO TID PRN 05/18/17 Aspirin 325 mg PO QD 05/18/17 Atorvastatin Calcium [Lipitor] 10 mg PO DAILY 05/18/17 Flavoxate HCl 1 - 2 tablet PO QID PRN 05/18/17 HYDROcodone 10MG/APAP 325MG [[place] 10/325] 1 ea PO Q4H PRN 05/18/17 Levocetirizine Dihydrochloride [Xyzal] 5 mg PO BEDTIME 05/18/17 Metoprolol Succinate [Toprol Xl] 37.5 mg PO DAILY 05/18/17 Milnacipran HCl [Savella] 50 mg PO TID 05/18/17 Trazodone HCl 100 mg PO BEDTIME 05/18/17 Triamcinolone Acetonide (Nasal [Nasacort Allergy 24Hr] 1 spray INH BID PRN 05/18 Valsartan-Hydrochlorothiazide [Diovan Hct 160-12.5 mg] 1 tablet PO DAILY Zolpidem Tartrate [Ambien] 10 mg PO BEDTIME 05/18/17 Bifidobacterium Infantis [Align] 4 mg PO DAILY 05/20/17 Cefixime [Suprax] 400 mg PO BID #20 cap 05/20/17 Phenazopyridine HCl [Pyridium] 200 mg PO TID #6 tablet 05/20/17 Polyethylene Glycol 3350 [Miralax] 17 gm PO DAILY 05/20/17 Additional Instructions: the patient is a 67-year-old female who presented due to oversedation likely related to a combination of medications and alcohol intake tonight. This was accidental. The patient has received a liter of IV fluids and is essentially mentating normally at this time. The patient likely needs to reduce her evening sedative type medications and reduce alcohol intake with these medications as the combination is obviously dangerous for her. She needs to follow up with her primary care doctor later this week. ER warnings were given for any significant worsening. Telemetry monitoring showed no evidence of any arrhythmia. obviously the patient should take no further sedating medications tonight. consideration should be given towards using a different sleep medication than the trazodone as the EKG does indicate a mildly prolonged QT interval.
[2018-03-08 02:23] VITALS: BP 111/66; TEMP 97
== END 2018-03-08 02:23 | disposition home or self-care (01) ==
LOC: ER 23:36
DX: T50.901A Poisoning by unspecified drugs, medicaments and biological substances, accidental (unintentional), initial encounter (principal); I48.91 Unspecified atrial fibrillation; I10 Essential (primary) hypertension; J45.909 Unspecified asthma, uncomplicated; Z95.810 Presence of automatic (implantable) cardiac defibrillator; Z86.73 Personal history of transient ischemic attack (TIA), and cerebral infarction without residual deficits; Z79.82 Long term (current) use of aspirin; Z79.899 Other long term (current) drug therapy; Y92.009 Unspecified place in unspecified non-institutional (private) residence as the place of occurrence of the external cause

== ENCOUNTER → 2018-05-24 | Outpatient (CLI) | payer BC, MEDICARE | LOC: GMAE 15:02 | PROVIDERS: ATTEND Family Medicine | DX: Z00.01 Encounter for general adult medical examination with abnormal findings (principal); E03.9 Hypothyroidism, unspecified ==

== ENCOUNTER → 2018-10-16 | Outpatient (CLI) | payer BC | LOC: GMAJ 15:24 | PROVIDERS: ATTEND Family Medicine | DX: I10 Essential (primary) hypertension (principal) ==

== ENCOUNTER 2019-09-25 18:31 | Emergency (ER) | payer BC ==
--- NOTE | 2019-09-25 19:14 | CT ---
EXAM DESCRIPTION: Head CLINICAL HISTORY: altered mental COMPARISON: Previous CT head March 08, 2018 TECHNIQUE: Noncontrast head CT was performed with routine protocol. FINDINGS: Normal casey-white matter differentiation. Ventricles and sulci are normal for age. Mild basal ganglial calcification. This is an incidental finding. No high density hemorrhage, focal edema or shift of the midline. No sulcal effacement. Normal orbital contents. Basilar cisterns appear clear. Intact calvarium with no fracture or lytic lesion. Normal aeration of tympanic cavities and mastoid air cells. No fluid levels in the paranasal sinuses. Skull base appears intact. Symmetrical internal auditory canals. Coronal and sagittal reformatted images confirm the findings. IMPRESSION: No acute intracranial pathologic process. This exam was performed according to our departmental dose-optimization program, which includes automated exposure control, adjustment of the mA and/or kV according to patient size and/or use of iterative reconstruction technique. Total DLP equals 967.47 mGycm. Electronically signed by: Eagle Quinteros MD 09/25/2019 7:12 PM [facility]
[2019-09-25 19:15] VITALS: O2SAT 99
[2019-09-25] MEDS ORDERED: ONDANSETRON INJ 4 MG/2 ML VIAL IV ONE (19:30)
[2019-09-25] MEDS ORDERED: SODIUM CHLORIDE 0.9% 1000ML 2,000 ML IVS ONE (19:30)
--- NOTE | 2019-09-25 19:32 | ED.PDOC ---
History of Present Illness - General Chief Complaint: Neuro Symptoms/Deficits Stated Complaint: ALTERED MENTAL STATUS Time Seen by Provider: 09/25/19 19:29 Source: patient, family - History of Present Illness Initial Comments: 69 yo F who presents with for nausea and vomiting onset several days ago after visiting family in [place] that had similar sx. Pt has chronic constipation and intermittently takes laxatives to have a bowel movement, reports an "uncomfortable" abd sensation like she needs to have a bowel movement, denies pain. Has not had a bowel movement in a week, having trouble passing gas as well. 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 Denies f/c, SNEED, weakness, numbness, change in vision, neck pain/stiffness, cough, congestion, CP, SOB, diarrhea, blood in stool. Allergies/Adverse Reactions: Allergies Sulfa Antibiotics Allergy (Verified 03/07/18 23:55) Alcohol Adverse Reaction (Verified 03/08/18 01:33) Penicillins Adverse Reaction (Verified 07/31/15 17:05) adhesives Adverse Reaction (Uncoded 07/31/15 17:05) Home Medications: Ambulatory Orders Metoclopramide HCl [Reglan] 10 mg PO ACHS PRN 07/31/15 ALPRAZolam [Xanax] 0.5 mg PO TID PRN 05/18/17 Aspirin 325 mg PO QD 05/18/17 Atorvastatin Calcium [Lipitor] 10 mg PO DAILY 05/18/17 Flavoxate HCl 1 - 2 tablet PO QID PRN 05/18/17 HYDROcodone 10MG/APAP 325MG [[place] 10/325] 1 ea PO Q4H PRN 05/18/17 Levocetirizine Dihydrochloride [Xyzal] 10 mg PO BEDTIME 05/18/17 Metoprolol Succinate [Toprol Xl] 37.5 mg PO DAILY 05/18/17 Milnacipran HCl [Savella] 50 mg PO TID 05/18/17 Trazodone HCl 100 mg PO BEDTIME 05/18/17 Triamcinolone Acetonide (Nasal [Nasacort Allergy 24Hr] 1 spray INH BID PRN 05/18/17 Valsartan-Hydrochlorothiazide [Diovan Hct 160-12.5 mg] 1 tablet PO DAILY 05/18/17 Zolpidem Tartrate [Ambien] 10 mg PO BEDTIME 05/18/17 Bifidobacterium Infantis [Align] 4 mg PO DAILY 05/20/17 Cefixime [Suprax] 400 mg PO BID #20 cap 05/20/17 Phenazopyridine HCl [Pyridium] 200 mg PO TID #6 tablet 05/20/17 Polyethylene Glycol 3350 [Miralax] 17 gm PO DAILY 05/20/17 Promethazine Tab [Phenergan Tablet] 25 mg PO Q6H PRN #12 tab 09/25/19 Review of Systems - Review of Systems Constitutional: Denies: chills, fever EENTM: Denies: blurred vision, double vision Respiratory: Denies: cough, orthopnea, short of breath Cardiology: Denies: chest pain, edema, palpitations Gastrointestinal/Abdominal: States: constipation, nausea, vomiting. Denies: abdominal pain, diarrhea Genitourinary: Denies: discharge, dysuria, frequency, hematuria Musculoskeletal: Denies: back pain, neck pain Skin: Denies: change in color, rash Neurological: Denies: headache, numbness, weakness Past Medical History (General) - Patient Medical History Hx Seizures: No Hx Stroke: Yes - 2011, and TIAs Hx Dementia: No Hx Asthma: Yes Hx of COPD: No Hx Cardiac Disorders: Yes - defibrillator, hx A-fib Hx Congestive Heart Failure: No Hx Pacemaker: No Hx Hypertension: Yes Hx Thyroid Disease: No Hx Diabetes: No Hx Renal Disease: No Hx Cancer: No Hx of HIV: No Hx MRSA: No Surgical History: appendectomy, Hysterectomy - Vaccination History Hx Influenza Vaccination: Yes - 2019 Hx Pneumococcal Vaccination: Yes - 2017 - Social History Hx Tobacco Use: Yes Hx Chewing Tobacco Use: No Hx Alcohol Use: Yes Hx Substance Use: No Hx Physical Abuse: No Hx Emotional Abuse: No Family Medical History - Family History Mother Family History: No Known Physical Exam - Physical Exam General Appearance: Alert, Comfortable, No apparent distress, Well Developed, Well Nourished Eye Exam: bilateral normal Ears, Nose, Throat: other - Dry mucous membranes Neck: non-tender, full range of motion, supple, normal inspection Respiratory: chest non-tender, lungs clear, normal breath sounds, no respiratory distress, no accessory muscle use Cardiovascular/Chest: normal peripheral pulses, regular rate, rhythm, no edema, no gallop, no JVD, no murmur Peripheral Pulses: radial,right: 2+, radial,left: 2+ Gastrointestinal/Abdominal: normal bowel sounds, non tender, soft, no organomegaly, no pulsatile mass Back Exam: normal inspection, no CVA tenderness, no vertebral tenderness Extremity: normal range of motion, non-tender, normal inspection, no pedal edema , no calf tenderness Neurologic: fitter up II-XII nml as tested, no motor/sensory deficits, alert, normal mood/affect, oriented x 3, other - normal gait, normal cerebellar testing Skin Exam: normal color, warm/dry Lymphatic: no adenopathy Progress - Progress Progress: I have explained and reviewed all results with the pt. Discussed MRCP and the fact that it is unavailable at this facility, offered transfer, pt and senior support engineer decline. She states she is feeling better, would like to be d/c home, will follow up with PCP and GI and schedule it as an outpt. Pt is tadeo po, abd exam is NT, eager to be d/c. I explained that emergent conditions may arise and to return to the ER for new, worsening, or any persistent conditions. I've explained the importance of f/u for recheck. All questions and concerns addressed at this time. Pt understands and agrees with plan. Pt well appearing, NAD, is stable for discharge. Gena Sanders MD Emergency Medicine Physician Billing Number [id number] - Results/Orders Results/Orders: 09/25/19 19:31 Hold Metformin x 48Hrs [id number] 09/25/19 19:45 EKG STAT Laboratory Results - last 24 hr 09/25/19 09/25/19 09/25/19 18:27 18:27 18:27 WBC RBC Hgb Hct MCV MCH MCHC RDW Plt Count MPV Absolute Neuts (auto) Absolute Lymphs (auto) Absolute Monos (auto) Absolute Eos (auto) Absolute Basos (auto) Neutrophils % Lymphocytes % Monocytes % Eosinophils % Basophils % Sodium 139 Potassium 3.5 L Chloride 100 L Carbon Dioxide 29 Anion Gap 13.5 BUN < 5 L Creatinine 0.83 BUN/Creatinine Ratio 6.0 L Random Glucose 96 Serum Osmolality 274.7 L Calcium 8.8 Total Bilirubin 0.6 AST 24 ALT 18 Alkaline Phosphatase 59 Troponin I < 0.02 Serum Total Protein 6.1 L Albumin 3.8 Globulin 2.3 Albumin/Globulin Ratio 1.7 Lipase 16 L Urine Color Urine Appearance Urine pH Ur Specific [place] Urine Protein Urine Glucose (UA) Urine Ketones Urine Blood Urine Nitrite Urine Bilirubin Urine Urobilinogen Ur Leukocyte Esterase Urine RBC Urine WBC Ur Epithelial Cells Urine Bacteria 09/25/19 09/25/19 19:27 21:00 WBC 3.1 L RBC 4.12 L Hgb 12.3 Hct 36.3 MCV 88.2 MCH 29.9 MCHC 33.9 RDW 13.5 Plt Count 264 MPV 7.8 Absolute Neuts (auto) 1.20 L Absolute Lymphs (auto) 1.10 Absolute Monos (auto) 0.30 Absolute Eos (auto) 0.40 Absolute Basos (auto) 0.00 Neutrophils % 38.2 L Lymphocytes % 36.8 Monocytes % 11.2 H Eosinophils % 12.3 H Basophils % 1.5 Sodium Potassium Chloride Carbon Dioxide Anion Gap BUN Creatinine BUN/Creatinine Ratio Random Glucose Serum Osmolality Calcium Total Bilirubin AST ALT Alkaline Phosphatase Troponin I Serum Total Protein Albumin Globulin Albumin/Globulin Ratio Lipase Urine Color Yellow Urine Appearance Clear Urine pH 7.0 Ur Specific [place] 1.010 Urine Protein Negative Urine Glucose (UA) Negative Urine Ketones Negative Urine Blood Trace-intact H Urine Nitrite Negative Urine Bilirubin Negative Urine Urobilinogen 0.2 Ur Leukocyte Esterase Negative Urine RBC 1-3 Urine WBC 0 Ur Epithelial Cells 0-[address] abd/pelvis: PROCEDURE: CT Abdomen/Pelvis w/Contrast CLINICAL HISTORY: 69 years Female abd pain TECHNIQUE: Contiguous axial images obtained through the abdomen and pelvis following intravenous contrast administration. No oral contrast was administered. Coronal and sagittal reformatted images provided. This CT exam was performed according to our departmental dose-optimization program, which includes one or more of the following dose reduction techniques: automated exposure control, adjustment of the mA and/or kV according to patient size, and/or use of iterative reconstruction technique. COMPARISON: 05/17/2017 FINDINGS: Bilateral breast implants. Mild bibasilar atelectasis. Elevation of the right hemidiaphragm with incomplete imaging of the dome of the liver. Again seen is prominence of the common bile duct, measuring approximately 1 cm. On the current examination, there is a possible filling defect within the common bile duct seen best on series 2 image 29, series 602 image 70. Also again seen is prominence of the distal pancreatic duct with diffuse pancreatic atrophy. No pancreatic inflammation. The gallbladder and intrahepatic biliary tree appear normal. Steatosis of the liver. The spleen, adrenal glands, kidneys, and urinary bladder are normal. Prior hysterectomy. Again seen is proximal to mid colonic constipation. No visualized bowel inflammation, obstruction, pneumatosis, free intraperitoneal air, abscess, or ascites. Prior appendectomy. Atherosclerosis without abdominal aortic aneurysm or dissection. No acute osseous abnormality. IMPRESSION: While prominence of the common bile and pancreatic ducts are stable as compared to the prior exam, there does appear to be a possible filling defect within the distal common bile duct. Consider further evaluation with ultrasound and/or MRCP vs. ERCP. Steatosis of the liver. Colonic constipation without bowel inflammation or obstruction. Electronically signed by: Jennifer Pandya MD 09/25/2019 9:[address] [address] head: EXAM DESCRIPTION: Head CLINICAL HISTORY: altered mental COMPARISON: Previous CT head March 08, 2018 TECHNIQUE: Noncontrast head CT was performed with routine protocol. FINDINGS: Normal casey-white matter differentiation. Ventricles and sulci are normal for age. Mild basal ganglial calcification. This is an incidental finding. No high density hemorrhage, focal edema or shift of the midline. No sulcal effacement. Normal orbital contents. Basilar cisterns appear clear. Intact calvarium with no fracture or lytic lesion. Normal aeration of tympanic cavities and mastoid air cells. No fluid levels in the paranasal sinuses. Skull base appears intact. Symmetrical internal auditory canals. Coronal and sagittal reformatted images confirm the findings. IMPRESSION: No acute intracranial pathologic process. This exam was performed according to our departmental dose-optimization program, which includes automated exposure control, adjustment of the mA and/or kV according to patient size and/or use of iterative reconstruction technique. Total DLP equals 967.47 mGycm. Electronically signed by: Eagle Quinteros MD 09/25/2019 7:12 PM [employer] COMPLIANCE MANAGER Vital Signs - 24 hr 09/25/19 09/25/19 09/25/19 18:32 21:00 22:00 Temperature 97.0 F L Pulse Rate [ 63 80 70 left brachial] Respiratory 20 18 16 Rate Blood Pressure 116/64 110/61 124/56 [left brachial] O2 Sat by Pulse 99 94 L 94 L Oximetry 09/25/19 23:04 Temperature 97.9 F Pulse Rate [ 73 left brachial] Respiratory 18 Rate Blood Pressure 110/61 [left brachial] O2 Sat by Pulse 99 Oximetry - EKG/XRAY/CT EKG: Chuy, Sinus Comments: T wave inversion V2-V5 Departure - Departure Clinical Impression: Nausea & vomiting Qualifiers: Vomiting type: unspecified Vomiting Intractability: non-intractable Qualified Code(s): R11.2 - Nausea with vomiting, unspecified Leukopenia Qualifiers: Leukopenia type: unspecified Qualified Code(s): D72.819 - Decreased white blood cell count, unspecified Time of Disposition: 22:24 Disposition: Discharge to Home or Self Care Health Concerns: Condition: stable Departure Forms: ED Discharge - Pt. Copy, Patient Portal Self Enrollment Instructions: Acute Abdomen (Belly Pain), Adult (DC), Nausea and Vomiting, Adult (DC) Prescriptions: Promethazine Tab [Phenergan Tablet] 25 mg PO Q6H PRN #12 tab PRN Reason: Nausea Home Medications: Ambulatory Orders Metoclopramide HCl [Reglan] 10 mg PO ACHS PRN 07/31/15 ALPRAZolam [Xanax] 0.5 mg PO TID PRN 05/18/17 Aspirin 325 mg PO QD 05/18/17 Atorvastatin Calcium [Lipitor] 10 mg PO DAILY 05/18/17 Flavoxate HCl 1 - 2 tablet PO QID PRN 05/18/17 HYDROcodone 10MG/APAP 325MG [[place] 10/325] 1 ea PO Q4H PRN 05/18/17 Levocetirizine Dihydrochloride [Xyzal] 10 mg PO BEDTIME 05/18/17 Metoprolol Succinate [Toprol Xl] 37.5 mg PO DAILY 05/18/17 Milnacipran HCl [Savella] 50 mg PO TID 05/18/17 Trazodone HCl 100 mg PO BEDTIME 05/18/17 Triamcinolone Acetonide (Nasal [Nasacort Allergy 24Hr] 1 spray INH BID PRN 05/18/17 Valsartan-Hydrochlorothiazide [Diovan Hct 160-12.5 mg] 1 tablet PO DAILY 05/18/17 Zolpidem Tartrate [Ambien] 10 mg PO BEDTIME 05/18/17 Bifidobacterium Infantis [Align] 4 mg PO DAILY 05/20/17 Cefixime [Suprax] 400 mg PO BID #20 cap 05/20/17 Phenazopyridine HCl [Pyridium] 200 mg PO TID #6 tablet 05/20/17 Polyethylene Glycol 3350 [Miralax] 17 gm PO DAILY 05/20/17 Promethazine Tab [Phenergan Tablet] 25 mg PO Q6H PRN #12 tab 09/25/19 Additional Instructions: Follow up: [facility] As needed, if symptoms worsen GI specialist Make appointment, two days, for follow up
--- NOTE | 2019-09-25 21:24 | CT ---
PROCEDURE: CT Abdomen/Pelvis w/Contrast CLINICAL HISTORY: 69 years Female abd pain TECHNIQUE: Contiguous axial images obtained through the abdomen and pelvis following intravenous contrast administration. No oral contrast was administered. Coronal and sagittal reformatted images provided. This CT exam was performed according to our departmental dose-optimization program, which includes one or more of the following dose reduction techniques: automated exposure control, adjustment of the mA and/or kV according to patient size, and/or use of iterative reconstruction technique. COMPARISON: 05/17/2017 FINDINGS: Bilateral breast implants. Mild bibasilar atelectasis. Elevation of the right hemidiaphragm with incomplete imaging of the dome of the liver. Again seen is prominence of the common bile duct, measuring approximately 1 cm. On the current examination, there is a possible filling defect within the common bile duct seen best on series 2 image 29, series 602 image 70. Also again seen is prominence of the distal pancreatic duct with diffuse pancreatic atrophy. No pancreatic inflammation. The gallbladder and intrahepatic biliary tree appear normal. Steatosis of the liver. The spleen, adrenal glands, kidneys, and urinary bladder are normal. Prior hysterectomy. Again seen is proximal to mid colonic constipation. No visualized bowel inflammation, obstruction, pneumatosis, free intraperitoneal air, abscess, or ascites. Prior appendectomy. Atherosclerosis without abdominal aortic aneurysm or dissection. No acute osseous abnormality. IMPRESSION: While prominence of the common bile and pancreatic ducts are stable as compared to the prior exam, there does appear to be a possible filling defect within the distal common bile duct. Consider further evaluation with ultrasound and/or MRCP vs. ERCP. Steatosis of the liver. Colonic constipation without bowel inflammation or obstruction. Electronically signed by: Jennifer Pandya MD 09/25/2019 9:22 PM [facility]
[2019-09-25] MEDS ORDERED: PROMETHAZINE HCL 25 MG TAB PO ONE (22:28)
[2019-09-25 23:05] VITALS: BP 110/61; TEMP 97.9
== END 2019-09-25 23:02 | disposition home or self-care (01) ==
LOC: ER 18:31
DX: R11.2 Nausea with vomiting, unspecified (principal); D72.819 Decreased white blood cell count, unspecified; R00.1 Bradycardia, unspecified; R41.0 Disorientation, unspecified; K59.00 Constipation, unspecified; I10 Essential (primary) hypertension; J45.909 Unspecified asthma, uncomplicated; I48.91 Unspecified atrial fibrillation; Z90.49 Acquired absence of other specified parts of digestive tract; Z90.710 Acquired absence of both cervix and uterus; Z79.899 Other long term (current) drug therapy; Z87.891 Personal history of nicotine dependence; Z86.73 Personal history of transient ischemic attack (TIA), and cerebral infarction without residual deficits; Z95.810 Presence of automatic (implantable) cardiac defibrillator; Z79.82 Long term (current) use of aspirin; Z88.2 Allergy status to sulfonamides; Z88.0 Allergy status to penicillin; Z88.8 Allergy status to other drugs, medicaments and biological substances
CPT/HCPCS: 70450; 74177; 80053; 81001; 83690; 84484; 85025; 93005; J2405; J7030; Q0169

== ENCOUNTER → 2019-10-09 | Outpatient (CLI) | payer BC ==
--- NOTE | 2019-10-09 16:53 | US ---
EXAM DESCRIPTION: Abdomen,Complete: Ultrasound. CLINICAL HISTORY: 69 years FemaleFATTY LIVER, NOT ELSEWHERE CLASSIFIED COMPARISON: None Available. TECHNIQUE: Transabdominal scanning: grayscale and Doppler modes. FINDINGS: Gallbladder: Normal size with no intraluminal stones or sludge. Normal wall thickness 2.4 mm. No fluid. Nontender with transducer pressure. Common bile duct: Dilated 7.9 mm. Liver: Long axis right lobe 11.8 cm. Normal echogenicity. Normal caliber of the ducts. Hepatopedal flow and normal caliber of the portal vein. Smooth capsule with no ascites. Pancreas: Normal echogenicity of the included segments and duct not seen.. Abdominal aorta: Normal caliber from the proximal segment to the distal bifurcation. IVC: visualized; normal caliber. Spleen normal echogenicity; long axis measurement is 9.3 cm. Right kidney: 10.5 cm Long axis. Minimal cortical thinning and increased echogenicity is most likely age-related. No echogenic stones or hydronephrosis. Left kidney: 9.7 cm long axis. [place] than the right kidney. Normal cortical thickness and echogenicity. No echogenic stones or hydronephrosis. IMPRESSION: Dilated common bile duct with no echogenic stones seen within the lumen. Pancreatic duct not dilated. No intrahepatic dilation of the liver, and gallbladder is negative. No steatosis of the liver by sonography. Consider hepatobiliary radionuclide imaging. Otherwise unremarkable ultrasound of the abdomen for patient's age. Minimal age-related changes in the right kidney. Electronically signed by: Nilo Plasencia MD 10/09/2019 4:51 PM [employer]
== END ==
LOC: US 09:29
PROVIDERS: ATTEND Family Medicine
DX: K76.0 Fatty (change of) liver, not elsewhere classified (principal)

== ENCOUNTER → 2019-10-30 | Outpatient (CLI) | payer BC ==
--- NOTE | 2019-10-31 14:42 | NM ---
EXAM DESCRIPTION: Hepatobiliar w/CCK: Nuclear Medicine. CLINICAL HISTORY: ABNORMAL FINDINGS ON DIAGNOSTIC IMAGING OF LIVER AND BILIARY TRAC COMPARISON: Ultrasound abdomen October 09, 2019. TECHNIQUE: Patient was given 8.4 mCi of technetium 99 M mebrofenin (Choletec) radiopharmaceutical IV. Anterior gamma camera images were obtained of the right upper quadrant at 5 minute intervals for one hour . The patient was then given 1.2 mcg CCK IV infusion over 30-minute interval. Gallbladder ejection fraction was evaluated by measuring change in radioactivity in the gallbladder, over 30 min interval. FINDINGS: After administration of radiopharmaceutical IV, immediate visualization of the entire liver with no photopenic regions or focal areas of abnormal activity. Timely visualization of intrahepatic and extrahepatic biliary ducts. Initial visualization of the gallbladder at 35 minutes after administration. Limited visualization of the small bowel. After IV infusion of CCK began, patient experienced nausea. At 10 minutes after infusion began, activity in the gallbladder decreased by 53 %. Activity in the gallbladder decreased 61% by 20 minutes, and 58% at 30 minutes. IMPRESSION: 1. No intrahepatic or extrahepatic biliary obstruction, though there is delayed visualization of the gallbladder and only minimal activity seen in the small bowel. 2. Gallbladder ejection fraction is within the normal range. Minimal symptoms reproduced when CCK administration began. Electronically signed by: Nilo Plasencia MD 10/31/2019 2:41 PM PATTERNMAKER GRADER
== END ==
LOC: NM 08:30
PROVIDERS: ATTEND Family Medicine
DX: R93.2 Abnormal findings on diagnostic imaging of liver and biliary tract (principal)
CPT/HCPCS: 78227; A9537

== ENCOUNTER 2020-04-03 05:46 | Day surgery (SDC) | payer BC ==
[2020-04-03] MEDS ORDERED: fentaNYL CITRATE INJ 50 MCG/ML 2 ML AMP IV ONE (05:47)
[2020-04-03] MEDS ORDERED: DEXAMETHASONE INJ 10 MG/ML VIAL IV ONE (05:47)
[2020-04-03] MEDS ORDERED: MAGNESIUM SULFATE INJ 1 GM/2 ML VIAL IVPB ONE (05:47)
[2020-04-03] MEDS ORDERED: LIDOCAINE 1% 10 ML VIAL INJ ONE (05:47)
[2020-04-03] MEDS ORDERED: MIDAZOLAM INJ 2 MG/2 ML VIAL IV ONE (05:47)
[2020-04-03] MEDS ORDERED: PROPOFOL 200 MG/20 ML VIAL IV ONE (05:47)
[2020-04-03] MEDS ORDERED: KETAMINE HCL 100 MG/ML VIAL IV ONE (05:47)
[2020-04-03] MEDS ORDERED: BUPIVACAINE 0.5% W/EPI 30 ML VIAL INJ ONE ×2 (15:24)
--- NOTE | 2020-04-03 15:53 | OP ---
DATE OF PROCEDURE: 04/03/20 PREOPERATIVE DIAGNOSIS: 1. Right flank mass. POSTOPERATIVE DIAGNOSIS: 1. Right flank mass into the muscle. PROCEDURE: 1. Excision, intramuscular, right flank mass, 3 cm. SURGEON: Hector Perez MD. ANESTHESIA: General and local. FINDINGS: There was a fatty tumor underneath the deep layers just on the muscle and no evidence of going into or between the ribs, about 3 cm. COMPLICATIONS: None. ESTIMATED BLOOD LOSS: None. CONDITION: Stable. PLAN: Discharge. PROCEDURE: In lateral position, general anesthesia was induced. The area was palpated. The mass was marked. Local anesthesia was instilled. Transverse incision was made. We went to the deep subcutaneous tissue and still had not encountered it. We identified the areolar tissue over the muscle, opened that up and then we identified the mass. We were able to dissect it out from the surrounding tissues carefully and slowly with a hemostat as well as with some cautery. It did come out completely without any evidence of a deeper tail going in between the ribs. No significant bleeding or supplying vessels were seen. We then closed the fascial layer with 3-0 Vicryl and closed the skin with interrupted 4-0 Monocryl. She tolerated the procedure, was awakened and taken to Recovery to be discharged. #[id number] MTDD
[2020-04-03 16:32] VITALS: BP 128/62; TEMP 97.5; O2SAT 100
== END 2020-04-03 16:36 | disposition home or self-care (01) ==
LOC: AMB 05:46
PROVIDERS: ATTEND Surgery
DX: D17.1 Benign lipomatous neoplasm of skin and subcutaneous tissue of trunk (principal); I10 Essential (primary) hypertension; Z79.899 Other long term (current) drug therapy
CPT/HCPCS: 00300; 21932; J1100; J2250; J3010; J3475; J3490

== ENCOUNTER → 2020-06-23 | Outpatient (CLI) | payer BC | LOC: GMAJ 16:54 | PROVIDERS: ATTEND Family Medicine | DX: N30.00 Acute cystitis without hematuria (principal) ==

== ENCOUNTER → 2020-10-14 | Outpatient (CLI) | payer BC | LOC: GMA CAST 17:24 | PROVIDERS: ATTEND Family Medicine Sports Medicine | DX: N30.00 Acute cystitis without hematuria (principal) ==